=== PATIENT | female | born 1955 | race Caucasian/White ===

== ENCOUNTER → 2016-11-26 | Outpatient (CLI) | payer OTHER ==
[~2016-11-26] MED LIST: AMOX500T PO; CYCL1TAB29 PO; CYCL7.5T33 PO; IBUP800T23 PO
[2016-11-26 09:48] LABS: AUTOMATED NEUTROPHIL # 2.8 TH/MM3 (1.8-7.7); BASOPHIL % 0.6 % (0.0-2.0); EOSINOPHIL # 0.2 TH/MM3 (0-0.4); EOSINOPHIL % 3.5 % (0.0-4.0); HEMATOCRIT 39.5 % (35.0-46.0); HEMO FLAGS DIFF FINAL; LYMPH % 30.3 % (9.0-44.0); LYMPHOCYTE # 1.5 TH/MM3 (1.0-4.8); MEAN CORPUSCULAR HEMOGLOBIN 30.3 PG (27.0-34.0); MEAN CORPUSCULAR HGB CONC 34.8 % (32.0-36.0); MONO % 7.5 % (0.0-8.0); NEUT % 58.1 % (16.0-70.0); PLATELET COUNT 255 TH/MM3 (150-450); RED BLOOD COUNT 4.54 MIL/MM3 (4.00-5.30); RED CELL DISTRIBUTION WIDTH 12.6 % (11.6-17.2); WHITE BLOOD COUNT 4.8 TH/MM3 (4.0-11.0)
[2016-11-26 10:07] LABS: ALKALINE PHOSPHATASE 91 U/L (45-117); ALT (GPT) 26 U/L (10-53); ANION GAP 7 MEQ/L (5-15); AST (GOT) 20 U/L (15-37); BICARBONATE 28.2 MEQ/L (21.0-32.0); BLOOD UREA NITROGEN 13 MG/DL (7-18); CHLORIDE 106 MEQ/L (98-107); GLOMERULAR FILTRATION RATE 68 ML/MIN (>89); GLUCOSE,FASTING 88 MG/DL (74-99); POTASSIUM 4.1 MEQ/L (3.5-5.1); SODIUM (NA) 141 MEQ/L (136-145); TOTAL BILIRUBIN ADULT 0.4 MG/DL (0.2-1.0)
== END ==
LOC: PLAB 07:44
PROVIDERS: ATTEND Family Medicine
DX: Z00.00 Encounter for general adult medical examination without abnormal findings (principal); Z11.59 Encounter for screening for other viral diseases
CPT/HCPCS: 80053; 85025; 86803

== ENCOUNTER 2018-02-19 15:32 | Emergency (ER) | payer OTHER ==
[~2018-02-19] VITALS: Ht 160 cm; Wt 77.0 kg
[~2018-02-19 15:32] MED LIST changes: -AMOX500T PO; +CYCL10TA PO; -CYCL1TAB29 PO; -CYCL7.5T33 PO; +IBUP1TAB7 PO; -IBUP800T23 PO
[2018-02-19 15:45] VITALS: BP 149/78; PULSE 79; RESP 18; TEMP 97.9; O2SAT 98
--- NOTE | 2018-02-19 16:35 | RADRPT ---
EXAM DATE/TIME: 02/19/2018 16:19 [place] COMPARISON: No previous studies available for comparison. INDICATIONS : Pain on posterior and medial left wrist post fall today. MEDICAL HISTORY : None. SURGICAL HISTORY : None. ENCOUNTER: Initial ACUITY: 1 day PAIN SCORE: 8/10 LOCATION: Left Wrist. FINDINGS: There is oblique nondisplaced fracture involving the distal left radius extending into the radiocarpa l joint at the level of the scapholunate . The fracture propagates obliquely through the dorsal radia l cortical surface and styloid cortical surface. There is slight widening of the scapholunate space w hich would suggest ligamentous disruption. The distal ulna is intact. No carpal fracture is identifie d. There is moderate arthritic change in the radial aspect of the carpus. CONCLUSION: Minimally displaced distal left radial fracture and scapholunate ligamentous disruption Rommel John MD on February 19, 2018 at 16:32 Board Certified Radiologist. This report was verified electronically.
[2018-02-19] MEDS ORDERED: HYDR-3516 PO (17:03)
--- NOTE | 2018-02-19 17:09 | PD ---
HPI Chief Complaint: Injury Time Seen by Provider: 16:51 Travel History International Travel<30 days: No Contact w/Intl Traveler<30days: No Traveled to known affect area: No History of Present Illness HPI This is a 62-year-old female who presents for evaluation of left wrist pain. She reports that this morning she fell on her outstretched left hand. She is complaining of pain and bruising to the left wrist which is aching and worse with movement. She reports a minor abrasion to the posterior proximal forearm as well. Denies any numbness or tingling. She has no other complaints at this time. [facility] Past Medical History Diminished Hearing: No Menopausal: Yes Past Surgical History Cholecystectomy: Yes Social History Alcohol Use: No Tobacco Use: No Substance Use: No Allergies-Medications (Allergen,Severity, Reaction): Coded Allergies: No Known Allergies (Verified , 11/24/16) Reported Meds & Prescriptions Reported Meds & Active Scripts Active Hydrocodone-Acetaminophen 5-325 mg Tab 1 Tab PO Q6H PRN Flexeril (Cyclobenzaprine HCl) 10 Mg Tab 10 Mg PO TID Reported Ibuprofen 800 Mg Tab 800 Mg PO Q6HR PRN Review of Systems Musculoskeletal: Positive: Limited ROM, Pain Skin: Positive Other (Positive for abrasion and bruising) Neurologic: No: Paresthesia Physical Exam Narrative GENERAL: Well-developed well-nourished female no acute distress SKIN: Warm and dry. Abrasion to the proximal left forearm. There is ecchymosis to the left wrist. CARDIOVASCULAR: Regular rate and rhythm. No murmur appreciated. RESPIRATORY: No accessory muscle use. Clear to auscultation. Breath sounds equal bilaterally. MUSCULOSKELETAL: There is generalized tenderness to palpation of left wrist. The patient has limited flexion, extension and supination of the left wrist. Capillary refill less than 2 seconds all digits of the left hand. 2+ radial pulse. NEUROLOGICAL: Awake and alert. No obvious cranial nerve deficits. Motor grossly within normal limits. Normal speech. Data Data Last Documented VS Vital Signs Date Time Temp Pulse Resp B/P (MAP) Pulse Ox O2 Delivery O2 Flow Rate FiO2 02/19/18 15:45 97.9 79 18 149/78 (101) 98 Orders Orders Wrist, Complete ([id number]) (02/19/18 ) Splint Or Brace Apply/Monitor (02/19/18 17:03) Ed Discharge Order (02/19/18 17:03) [facility] Medical Decision Making Medical Screen Exam Complete: Yes Emergency Medical Condition: Yes Medical Record Reviewed: Yes Differential Diagnosis Wrist fracture, sprain, contusion, dislocation Narrative Course X-ray of the left wrist reveals CONCLUSION: Minimally displaced distal left radial fracture and scapholunate ligamentous disruption The patient will be placed in a sugar tong splint and referred for outpatient hand specialty follow-up. She is stable for discharge. Diagnosis Primary Impression: Left wrist fracture Additional Impression: Left scapholunate ligament tear Referrals: Bella Warren MD Additional Instructions: Do not remove the splint. Ice the affected area several times a day 20 minutes at a time. Elevate. Follow-up with a hand specialist such as Dr. Warren in the next week, call to make an appointment. Return for any emergent medical conditions. Med/Other Pt SpecificInfo: Prescription(s) given, Orthopedic Instructions Scripts Hydrocodone-Acetaminophen (Hydrocodone-Acetaminophen) 5-325 mg Tab 1 TAB PO Q6H Y for PAIN, #15 TAB 0 Refills Prov: Jorge Howell MD 02/19/18 Disposition: 01 DISCHARGE HOME Condition: Stable Alfonzo Thomas Feb 19, 2018 17:09
== END 2018-02-19 18:10 | disposition home or self-care (01) ==
LOC: NEPD 15:32
DX: S52.502A Unspecified fracture of the lower end of left radius, initial encounter for closed fracture (principal); S63.8X2A Sprain of other part of left wrist and hand, initial encounter; S60.212A Contusion of left wrist, initial encounter; S50.812A Abrasion of left forearm, initial encounter; W19.XXXA Unspecified fall, initial encounter
CPT/HCPCS: 29125; 73110